=== PATIENT | female | born 1965 | race Native Hawaiian/Other Pacific Islander ===

== ENCOUNTER 2018-04-27 15:14 | Outpatient (CLI) | payer OTHER | END 2018-04-27 21:42 | disposition home or self-care (01) | LOC: LABW 15:14 | PROVIDERS: Family Medicine | DX: M79.643 Pain in unspecified hand (principal); I10 Essential (primary) hypertension | CPT/HCPCS: 36415; 80053; 84550; 85651; 86038; 86140; 86430 ==

== ENCOUNTER 2020-05-01 13:19 | Outpatient (CLI) | payer OTHER | END 2020-05-01 20:47 | disposition home or self-care (01) | LOC: LAB 13:19 | PROVIDERS: ATTEND Family Medicine | DX: Z20.828 Contact with and (suspected) exposure to other viral communicable diseases (principal) | CPT/HCPCS: 87635; G2023; U0003 ==